=== PATIENT | female | born 1960 | race Hispanic/Latino ===

== ENCOUNTER 2017-09-28 10:36 | Emergency (ER) | payer OTHER ==
[2017-09-28] MEDS ORDERED: IBUPROFEN 400 MG TAB ONE (11:07)
[2017-09-28] MEDS ORDERED: DIAZEPAM 2 MG TABLET ONE (11:07)
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
[2017-09-28 13:18] LABS: Urine Blood NEGATIVE (NEG); Urine Glucose NEGATIVE (NEG); Urine Protein NEGATIVE (NEG); Urine pH 5.5 (5.0-7.0)
== END 2017-09-28 12:40 | disposition home or self-care (01) ==
LOC: ER 10:36
DX: S60.041A Contusion of right ring finger without damage to nail, initial encounter (principal); S60.051A Contusion of right little finger without damage to nail, initial encounter; V44.0XXA Car driver injured in collision with heavy transport vehicle or bus in nontraffic accident, initial encounter; Y93.89 Activity, other specified; Y92.89 Other specified places as the place of occurrence of the external cause
CPT/HCPCS: 81003; 81025; 99284

== ENCOUNTER 2019-10-21 07:35 | Day surgery (SDC) | payer OTHER ==
--- NOTE | 2019-10-17 15:34 | RAD REPORT ---
EXAM DESCRIPTION: RAD - Chest Pa And Lat (2 Views) - 10/17/2019 3:11 pm CLINICAL HISTORY: pre op, pending hernia repair, hypertension COMPARISON: Two view chest January 2017 TECHNIQUE: Frontal and lateral views of the chest were obtained. FINDINGS: The lungs are clear. Heart size is normal and central vasculature is within normal limit s. No pleural effusion or pneumothorax seen. No acute bony finding noted. Bony degenerative changes are present along with accentuated kyphosis. No aortic abnormality. IMPRESSION: No acute cardiopulmonary process. No significant change from comparison.
[2019-10-17 16:15] LABS: Absolute Lymphocytes (CBC) 0.8 K/uL (0.7-4.9); Basophils % 0.8 % (0-1.3); Hematocrit 39.1 % (36.0-45.0); Lymphocytes % 31.2 % (15.3-44.8); MPV 8.7 fL (7.6-11.3); RBC Red Blood Cell Count 4.38 M/uL (3.86-4.86)
[2019-10-17 16:57] LABS: Potassium 3.6 mmol/L (3.5-5.1)
[2019-10-17 18:51] LABS: Platelet Estimate ADEQ
[2019-10-17 18:52] LABS: Blood Morphology Comment NOT SEEN (NOT SEEN)
--- OUTSIDE RECORDS SUMMARY | 2019-10-21 08:07 | XMS REPORT | Summary of Care ---
:1960 Author Organization [facility] Address [address] [place] [id number] Care Team Providers Name Role Phone MD Nathaly Primary Care Provider Reason for Visit Reason Comments Erroneous encounter-disregard Encounter Details Date Type Department Care Team Description 10/08/2019 Telephone [facility] Pediatric Tom Andersen MD Erroneous and Adult Primary [address] encounter-disregard Care- [place] [address] [place], [place] [address], [address] [place] [address] Allergies No Known Allergiesdocumented as of this encounter (statuses as of 10/09/2019) Medications Medication Sig Dispensed Refills Start Date End Date Status LISINOPRIL-HYDROCHLOROT TAKE ONE TABLET 90 tablet 2 02/26/2019 Active HIAZIDE 10-12.5 mg per BY MOUTH DAILY tabletIndications: Essential hypertension documented as of this encounter (statuses as of 10/09/2019) Active Problems Problem Noted Date Obesity (BMI 30-39.9) 05/23/2018 Abdominal pannus 04/11/2018 Overview: Added automatically from request for lorna lazcano [id number] Postmenopausal 09/15/2017 Screening for colorectal cancer 06/22/2017 Overview: Added automatically from request for lorna lazcano [id number] Essential hypertension 07/30/2015 Liver fibrosis Thrombocytopenia documented as of this encounter (statuses as of 10/09/2019) Immunizations Name Administration Dates Next Due Pneumococcal 13 Conjugate, PCV13 (Prevnar 13) 03/26/2019 Zoster Vaccine Recombinant 03/26/2019 documented as of this encounter Social History Tobacco Use Types Packs/Day Years Used Date Never Smoker Smokeless Tobacco: Never Used Alcohol Use Drinks/Week oz/Week Comments No 0 Standard drinks or equivalent 0.0 Sex Assigned at Date Recorded Not on file documented as of this encounter Last Filed Vital Signs Not on filedocumented in this encounter Plan of Treatment Date Type Specialty Care Team Description 10/10/2019 Office Visit Family Medicine Tom Andersen MD [address] [place] [address] [address] [place], [place] [address] [phone] 04/16/2020 Office Visit Obstetrics & Gynecology Idalia Lr PA-C [address] [place] [address] [address] [place], [place] [phone] Health Maintenance Due Date Last Done Comments DTaP,Tdap,and Td Vaccines (1 - 1977 Tdap) COLON CANCER SCREENING ANNUAL 2008 FIT/FOBT COLON CANCER SCREENING FIT DNA 2008 EVERY 3 YEARS COLON CANCER SCREENING 2008 SIGMOIDOSCOPY EVERY 5 YEARS Zoster Recombinant Vaccine 05/21/2019 03/26/2019 (SHINGRIX) (2 of 2) INFLUENZA VACCINE (#1) 2019 Breast Cancer Screening 04/19/2020 04/19/2019, (MAMMOGRAM) 06/16/2017 Depression Screening 07/04/2020 07/05/2019 PAP SMEAR 09/07/2020 09/07/2017 COLONOSCOPY 07/04/2029 07/05/2019 Colorectal Cancer Screening 07/04/2029 HEPATITIS C (HCV) SCREEN Completed 06/27/2018, 09/07/2017, 06/28/2017 PNEUMOCOCCAL 0-64 YEARS Aged Out 03/26/2019 No longe r eligible based COMBINED SERIES on patient's age to complete this to [facility] documented as of this encounter Implants Implanted Type Area Field Associate Device Shelf Model / Identifier Expiration Serial / Date Lot Mesh, Ethicon Prolene Ultrapro 12in X 12in (30cm X 30cm) #[id number] - Sn/A MESH N/A: Abdomen Ethicon 04/26/2020 [id number] / Implanted: Qty: 1 on 05/23/2018 by Prakash Thakkar MD at [facility] N/A / [id number] documented as of this encounter Results Not on filedocumented in this encounter Insurance Payer Benefit Plan / Group Subscriber ID Effective Dates Phone Address Type [employer]ETNA [facility] [facility] [id number] 2015-Present PPO documented as of this encounter
--- OUTSIDE RECORDS SUMMARY | 2019-10-21 08:07 | XMS REPORT | Summary of Care ---
:1960 Author Organization [facility] Address [address] [place] [address] Care Team Providers Name Role Phone MD Nathaly Primary Care Provider Reason for Visit Reason Comments LAB WORK Encounter Details Date Type Department Care Team Description 10/12/2019 Tower Air Traffic Control Specialist Visit [facility] Jerrell Andersen MD [address] [place] [address] [address] [place] [address] Abdominal wall Professional Office Pob, Adc Lab Main hernia Building Phlebotomy Lab Professional Office Building [address] [place] [address] , [address] [place] [address] Allergies No Known Allergiesdocumented as of this encounter (statuses as of 10/12/2019) Medications Medication Sig Dispensed Refills Start Date End Date Status LISINOPRIL-HYDROCHLOROT TAKE ONE TABLET 90 tablet 2 02/26/2019 Active HIAZIDE 10-12.5 mg per BY MOUTH DAILY tabletIndications: Essential hypertension documented as of this encounter (statuses as of 10/12/2019) Active Problems Problem Noted Date Abdominal wall hernia 10/10/2019 Obesity (BMI 30-39.9) 05/23/2018 Abdominal pannus 04/11/2018 Overview: Added automatically from request for lorna lazcano [id number] Postmenopausal 09/15/2017 Screening for colorectal cancer 06/22/2017 Overview: Added automatically from request for lorna lazcano [id number] Essential hypertension 07/30/2015 Liver fibrosis Thrombocytopenia documented as of this encounter (statuses as of 10/12/2019) Immunizations Name Administration Dates Next Due Pneumococcal 13 Conjugate, PCV13 (Prevnar 13) 03/26/2019 Zoster Vaccine Recombinant 03/26/2019 documented as of this encounter Social History Tobacco Use Types Packs/Day Years Used Date Never Smoker Smokeless Tobacco: Never Used Alcohol Use Drinks/Week oz/Week Comments No 0 Standard drinks or equivalent 0.0 Sex Assigned at Date Recorded Not on file COVID-19 Exposure Response Date Recorded In the last month, have you been in contact with No / Unsure 10/10/2019 12:56 PM CDT someone who was confirmed or suspected to have Coronavirus / COVID-19? documented as of this encounter Last Filed Vital Signs Not on filedocumented in this encounter Nursing Notes Norma Borja - 10/12/2019 8:45 AM CDT Venipuncture collection performed by clean technique on the right anticubitus. Total of 1 attempts were made. Slight pressure and a bandage/dressing were applied to the site(s). The patient experiencedno complications. The following specimens were processed according to instructions and sent to [facility] laboratories per lab order on today: LT BLUE 1 SST 1 RED LAV 1 PPT DK GREEN (LiHep) DK GREEN (SodH) [place] DK BLUE (K2) DK BLUE (S) ACD Blood Culture NIPT/NTD documented in this encounter Plan of Treatment Date Type Specialty Care Team Description 01/10/2020 Office Visit Family Medicine Tom Andersen MD [address] [place] [address] [address] [address] 15 04/16/2020 Office Visit Obstetrics & Gynecology Idalia Lr PA-C [address] [place] [address] [address] [address] [phone] Name Type Priority Associated Diagnoses Date/Ti me CBC WITH DIFF LAB Routine Abdominal wall hernia 10/11 8:25 AM CDT FREE T4 LAB Routine Abdominal wall hernia 2019 8:25 AM CDT FREE T3 LAB Routine Abdominal wall hernia 2019 8:25 AM CDT LIPID PANEL (17274)(TOTAL LAB Routine Abdominal wall hernia 10/12/2019 8:25 AM CDT CHOLESTEROL, TRIGLYCERIDES, HDL) THYROID STIMULATING LAB Routine Abdominal wall hernia 10/12/2019 8:25 AM CDT HORMONE PROTHROMBIN TIME / INR LAB Routine Abdominal wall her phil 10/12/2019 8:25 AM CDT aPTT LAB Routine Abdominal wall hernia 2019 8:25 AM CDT Health Maintenance Due Date Last Done Comments COLON CANCER SCREENING ANNUAL 2008 FIT/FOBT COLON CANCER SCREENING FIT 2008 DNA EVERY 3 YEARS COLON CANCER SCREENING 2008 SIGMOIDOSCOPY EVERY 5 YEARS Zoster Recombinant Vaccine 05/21/2019 03/26/2019 (SHINGRIX) (2 of 2) INFLUENZA VACCINE (#1) 2019 Breast Cancer Screening 04/19/2020 04/19/2019, (MAMMOGRAM) 06/16/2017 Depression Screening 07/04/2020 07/05/2019 PAP SMEAR 09/07/2020 09/07/2017 DTaP,Tdap,and Td Vaccines (1 10/09/2020 Pos tponed from 1977 - Tdap) (Alternative [place]) COLONOSCOPY 07/04/2029 07/05/2019 Colorectal Cancer Screening 07/04/2029 HEPATITIS C (HCV) SCREEN Completed 06/27/2018, 09/07/2017, 06/28/2017 PNEUMOCOCCAL 0-64 YEARS Aged Out 03/26/2019 No longe r eligible based COMBINED SERIES on patient's age to complete this to [facility] documented as of this encounter Implants Implanted Type Area Trim Sawyer Device Shelf Model / Identifier Expiration Serial / Date Lot Mesh, Ethicon Prolene Ultrapro 12in X 12in (30cm X 30cm) #[id number] l1 - Sn/A MESH N/A: Abdomen Ethicon 04/26/2020 UML1 / Implanted: Qty: 1 on 05/23/2018 by Prakash Thakkar MD at [facility] N/A / [id number] documented as of this encounter Results Not on filedocumented in this encounter Visit Diagnoses Diagnosis Abdominal wall hernia Ventral hernia, unspecified, without men tion of obstruction or gangrene documented in this encounter documented as of this encounter
--- OUTSIDE RECORDS SUMMARY | 2019-10-21 08:07 | XMS REPORT | Summary of Care ---
:1960 Author Organization [facility] Address [address] [place] [address] Care Team Providers Name Role Phone MD Nathaly Primary Care Provider Reason for Visit Reason Comments New Patient HERNIA Hypertension Encounter Details Date Type Department Care Team Description 10/10/2019 Office Visit [facility] Pediatric Tom Andersen E ssential hypertension (Primary Dx); and Adult Primary MD Abdominal wall hernia Care- [address] [facility] [address], [address] [place] [address] [place], [place] [phone] [address] [phone] Allergies No Known Allergiesdocumented as of this encounter (statuses as of 10/10/2019) Medications Medication Sig Dispensed Refills Start Date End Date Status LISINOPRIL-HYDROCHLOROT TAKE ONE TABLET 90 tablet 2 02/26/2019 Active HIAZIDE 10-12.5 mg per BY MOUTH DAILY tabletIndications: Essential hypertension documented as of this encounter (statuses as of 10/10/2019) Active Problems Problem Noted Date Abdominal wall hernia 10/10/2019 Obesity (BMI 30-39.9) 05/23/2018 Abdominal pannus 04/11/2018 Overview: Added automatically from request for lorna lazcano [id number] Postmenopausal 09/15/2017 Screening for colorectal cancer 06/22/2017 Overview: Added automatically from request for lorna lazcano [id number] Essential hypertension 07/30/2015 Liver fibrosis Thrombocytopenia documented as of this encounter (statuses as of 10/10/2019) Immunizations Name Administration Dates Next Due Pneumococcal [...] of this encounter Last Filed Vital Signs Vital Sign Reading Time Taken Comments Blood Pressure 128/87 10/10/2019 1:13 PM CDT Pulse 77 10/10/2019 1:13 PM CDT Temperature 36.1 C (97 F) 10/10/2019 1:13 PM CDT Respiratory Rate 18 10/10/2019 1:13 PM CDT Oxygen Saturation 96% 10/10/2019 1:13 PM CDT Inhaled Oxygen Concentration - - Weight 89.6 kg (197 lb 8 oz) 10/10/2019 1:13 PM CDT Height 160 cm (5' 3") 10/10/2019 1:13 PM CDT Body Mass Index 34.99 10/10/2019 1:13 PM CDT documented in this encounter Patient Instructions Patient InstructionsEdTom leonardo MD - 10/10/2019 1:00 PM CDT Patient Education How a Hernia Develops Although a hernia bulge may appear suddenly, hernias often take years to develop. They grow larger as pressure inside the body presses the intestines or other tissues out through a weak area in the abdominal wall, often at the belly button or a site of previous surgery. With time, these tissues can bulge out beneath the skin. Stages of hernia development The wall weakens or tears.The abdominal lining bulges out through a weak area and begins to form ahernia sac. The sac may contain fat, intestine, or other tissues. At this point, the hernia may or may not cause a visible bulge. The intestine pushes into the sac.As the intestine pushes further into the sac, it forms a visiblebulge. The bulge may flatten when you lie down or push against it. This is called a reducible herniaand does not cause any immediate danger. The intestine may become trapped.The sac containing the intestine may become trapped by muscle (incarcerated). If this happens, you wont be able to flatten the bulge. You may also have pain. Prompt treatment is needed. The intestine may become strangulated. If the intestine is tightly trapped, it becomes strangulated.The strangulated area loses blood supply and may . This can cause severe pain and block the intestine. Emergency surgery is needed. [employer] last reviewed this educational content on 03/30/201919992526-5726 [employer]. [address] [place] [id number]. All rights reserved. This information is not intended as a substitute for professional medical care. Always follow your healthcare professional's instructions. documented in this encounter Progress Notes Tom Andersen MD - 10/10/2019 1:00 PM CDT Cc: Chief Complaint Patient presents with New Patient HERNIA Hypertension Lor Polanco is a 59 year old female who has a past medical history of Acid reflux disease, HPV (human papilloma virus) anogenital infection, Hypercholesteremia, Hypertension, Liver fibrosis, Liver fibrosis, Pap smear abnormality of cervix, STD (sexually transmitted disease), Thrombocytopenia, and Thrombocytopenia. She also has no past medical history of Abnormal uterine bleeding, Anemia, Anesthesia complication, Anxiety, Asthma, Autoimmune disorder, Blood dyscrasia, Breast disorder, Cancer, Coronary artery disease, Depression, Diabetes mellitus, Endocrine disorder, Endometriosis, Female infertility, Genital herpes, Genital warts, Heart murmur, Hormone disorder, Hyperlipidemia, Kidney disease, Leiomyoma of uterus, Menstrual disorder, Mental disorder, Osteoporosis, PID (pelvic inflammatory disease), Rh incompatibility, Seizures, Sickle cell anemia, Substance abuse, Superficial thrombophlebitis, Thyroid disease, Transfusion history, Trauma, Tuberculosis, or Urinary incontinence. Patient is here to establish care with a new provider, reports scheduled procedure for abdominal hernia repair. Patient reports hx HTN, BP currently controlled, 128/87 on arrival, on Lisinopril -HCTZ 10 -12.5mg qDay. Patient completed shingles vaccination at the local pharmacy, is due to tetanus vaccination, will complete at the local pharmacy. Prior labs reviewed and discussed Allergies Lor has No Known Allergies. Medications Outpatient Medications Prior to Visit Medication Sig Dispense Refill LISINOPRIL-HYDROCHLOROTHIAZIDE 10-12.5 mg per tablet TAKE ONE TABLET BY MOUTH DAILY 90 tablet 2 No facility-administered medications prior to visit. Histories Past Medical History: Diagnosis Date Acid reflux disease HPV (human papilloma virus) anogenital infection Hypercholesteremia Hypertension Liver fibrosis Liver fibrosis Pap smear abnormality of cervix STD (sexually transmitted disease) Thrombocytopenia Thrombocytopenia Past Surgical History: Procedure Laterality Date SECTION CHOLECYSTECTOMY COLONOSCOPY N/A 07/05/2019 Surgeon: Kirstie Brown MD; Location: [facility] OR Location LAPAROSCOPIC BARIATRIC GASTRIC BYPASS 02/2001 PANNICULECTOMY N/A 05/23/2018 Surgeon: Renée Lorenzo MD; Location: [facility] OR [facility] VENTRAL HERNIORRHAPHY N/A 05/23/2018 Surgeon: Prakash Weber MD; Location: [facility] OR Location Social History Socioeconomic History Marital status: Spouse name: Not on file Number of children: Not on file Years of education: Not on file Highest education level: Not on file Occupational History Not on file Social Needs Financial resource strain: Not on file Food insecurity Worry: Not on file Inability: Not on file Transportation needs Medical: Not on file Non-medical: Not on file Tobacco Use Smoking status: Never Smoker Smokeless tobacco: Never Used Substance and Sexual Activity Alcohol use: No Alcohol/week: 0.0 standard drinks Drug use: No Sexual activity: Yes Partners: Male control/protection: Post-menopausal Lifestyle Physical activity Days per week: Not on file Minutes per session: Not on file Stress: Not on file Relationships Social connections Talks on phone: Not on file Gets together: Not on file Attends hinduism service: Not on file Active member of club or organization: Not on file Attends meetings of clubs or organizations: Not on file Relationship status: Not on file Intimate partner violence Fear of current or ex partner: Not on file Emotionally abused: Not on file Physically abused: Not on file Forced sexual activity: Not on file Other Topics Concern Not on file 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 She's active. Family History Problem Relation Age of Onset Cancer Mother Diabetes Mother Pulmonary Mother Parkinsons disease Father Alcohol/Drug Father Hypertension Father Asthma NoFHx Arthritis NoFHx defects NoFHx Breast Cancer NoFHx Colon Cancer NoFHx Ovarian Cancer NoFHx Uterine Cancer NoFHx Depression NoFHx Genetic NoFHx Heart NoFHx High cholesterol NoFHx Mental retardation NoFHx Neurological NoFHx Other - see comments NoFHx Review of Systems Constitutional: Negative for unexpected weight change. Respiratory: Negative for cough and shortness of breath. Cardiovascular: Negative for chest pain and palpitations. Gastrointestinal: Negative for abdominal pain. Hernia Vital Signs BP 128/87 (BP Location: Right arm, Patient Position: Sitting, BP CUFF SIZE: Adult Medium) | Pulse 77 | Temp 36.1 C (97 F) (Temporal Artery) | Resp 18 | Ht 5' 3" (1.6 m) | Wt 197 lb 8 oz (89.6 kg) | SpO2 96% | BMI 34.99 kg/m Physical Exam Vitals signs and nursing note reviewed. Constitutional: Appearance: Normal appearance. HENT: Head: Normocephalic and atraumatic. Nose: Nose normal. Eyes: Extraocular Movements: Extraocular movements intact. Pupils: Pupils are equal, round, and reactive to light. Neck: Musculoskeletal: Normal range of motion and neck supple. Cardiovascular: Rate and Rhythm: Normal rate and regular rhythm. Pulses: Normal pulses. Abdominal: General: Bowel sounds are normal. Palpations: Abdomen is soft. Tenderness: There is no abdominal tenderness. Hernia: A hernia is present. Comments: Abdominal wall hernia Musculoskeletal: Normal range of motion. General: No swelling. Skin: General: Skin is warm and dry. Capillary Refill: Capillary refill takes less than 2 seconds. Neurological: General: No focal deficit present. Mental Status: She is alert. Psychiatric: Mood and Affect: Mood normal. Behavior: Behavior normal. Assessment/Plan Essential hypertension - BP stable and controlled, encouraged to adopt DASH diet plan, continue on Lisinopril - HCTZ 10 - 12.5mg qDay Abdominal wall hernia - Patient is scheduled to see General Surgery (Dr. Bill Díaz), 10/11/2019, currently scheduled for surgery on 10/21/2019 - Labs as ordered Return in about 3 months (around 01/10/2020), or if symptoms worsen or fail to improve. Preventive Care: Medication reconciliation, patient education and anticipatory guidance completed. All questions and concerns addressed. AVS given, handout provided. Tom Andersen MD, MPH, AAHIVS Clinical Bulk Intake Worker, Department of Family Medicine [facility] Primary & Specialty Care - [facility] 10/10/2019 1:36 PM documented in this encounter Plan of Treatment Date Type Specialty Care Team Description 04/16/2020 Office Visit Obstetrics & Gynecology Idalia Lr PA-C [address] [place] [address] [phone] Name Type Priority Associated Diagnoses Order S chedule CBC WITH DIFF LAB Routine Abdominal wall hernia Expec devora: 10/10/2019, Expires: 2020 COMP. METABOLIC PANEL LAB Routine Abdominal wall rj ia Ordered: 10/10/2019 (45106) FREE T4 LAB Routine Abdominal wall hernia Expect ed: 10/10/2019, Expires: 2020 FREE T3 LAB Routine Abdominal wall hernia Expect ed: 10/10/2019, Expires: 2020 LIPID PANEL LAB Routine Abdominal wall hernia Expect ed: ([id number])(TOTAL 10/10/2019, CHOLESTEROL, Expires: 2020 TRIGLYCERIDES, HDL) THYROID STIMULATING LAB Routine Abdominal wall hernia Expected: HORMONE 10/10/2019, Expires: 2020 PROTHROMBIN TIME / INR LAB Routine Abdominal wall her phil Expected: 10/10/2019, Expires: 2020 aPTT LAB Routine Abdominal wall hernia Expect ed: 10/10/2019, Expires: 2020 EKG-12 LEAD ROUTINE HEART STATION Routine Abdominal wall herni a Ordered: 10/10/2019 COVID-19 (PCR LAB Routine Abdominal wall hernia Expec devora: MOLECULAR TESTING) 0, Expires: 2020 Health Maintenance Due Date Last Done Comments COLON CANCER SCREENING ANNUAL 2008 FIT/FOBT COLON CANCER SCREENING FIT 2008 DNA EVERY 3 YEARS COLON CANCER SCREENING 2008 SIGMOIDOSCOPY EVERY 5 YEARS Zoster Recombinant Vaccine 10/11/2019 03/26/2019 Postp oned from 05/21/2019 (SHINGRIX) (2 of 2) (Alternative Guidelines) INFLUENZA VACCINE (#1) 2019 Breast Cancer Screening [...] on patient's age to complete this to [facility] documented as of this encounter Implants Implanted Type Area Philosophy Professor Device Shelf Model / Identifier Expiration Serial / Date Lot Mesh, Ethicon Prolene Ultrapro 12in X 12in (30cm X 30cm) #[id number] l1 - Sn/A MESH N/A: Abdomen Ethicon 04/26/2020 UML1 / Implanted: Qty: 1 on 05/23/2018 by Prakash Thakkar MD at [facility] N/A / [id number] documented as of this encounter Results Not on filedocumented in this encounter Visit Diagnoses Diagnosis Essential hypertension - Primary Unspecified essential hypertension Abdominal wall hernia Ventral hernia, unspecified, without men tion of obstruction or gangrene documented in this encounter documented as of this encounter
--- OUTSIDE RECORDS SUMMARY | 2019-10-21 08:07 | XMS REPORT | Summary of Care ---
:[address] [facility] Address [address] [place] [address] Care Team Providers Name Role Phone MD Nathaly Primary Care Provider Reason for Visit Reason Comments New Patient HERNIA Hypertension Encounter Details Date Type Department Care Team Description 10/10/2019 Office Visit [facility] Pediatric Tom Andersen E ssential hypertension (Primary Dx); and Adult Primary MD Abdominal wall hernia Care- [address] [facility] [address], [address] [place] [address] [place] [phone] [address] [phone] Allergies No Known Allergiesdocumented as of this [...] Added automatically from request for lorna lazcano [id number] Postmenopausal 09/15/2017 Screening for colorectal cancer 06/22/2017 Overview: Added automatically from request for lorna lazcano [id number] Essential hypertension 07/30/2015 Liver fibrosis Thrombocytopenia documented [...] block the intestine. Emergency surgery is needed. [employer] last reviewed this educational content on 03/30/201919992292-4014 [employer]. [address] [place] [address]. All rights reserved. 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 Tom Andersen MD, MPH, AAHIVS Clinical Creative Services Designer, Department of Family Medicine [facility] Primary & Specialty Care - [facility] 10/10/2019 1:36 PM documented in this encounter Plan of Treatment Date Type Specialty Care Team Description 04/16/2020 Office Visit Obstetrics & Gynecology Idalia Lr PA-C [address] [place] [address] [phone] Name Type Priority Associated Diagnoses Order S chedule CBC WITH DIFF LAB Routine Abdominal wall hernia Expec devora: 10/10/2019, Expires: 2020 COMP. METABOLIC PANEL LAB Routine Abdominal wall rj ia Ordered: 10/10/2019 (13215) FREE T4 LAB Routine Abdominal wall hernia Expect ed: 10/10/2019, Expires: 2020 FREE T3 LAB Routine Abdominal wall hernia Expect ed: 10/10/2019, Expires: 2020 LIPID PANEL LAB Routine Abdominal wall hernia Expect ed: (28611)(TOTAL 10/10/2019, CHOLESTEROL, Expires: 2020 TRIGLYCERIDES, HDL) THYROID [...] on patient's age to complete this to [facility] documented as of this encounter Implants Implanted Type Area Director Of Accounting Device Shelf Model / Identifier Expiration Serial / Date Lot Mesh, Ethicon Prolene Ultrapro 12in X 12in (30cm X 30cm) #[id number] l1 - Sn/A MESH N/A: Abdomen Ethicon 04/26/2020 UML1 / Implanted: Qty: 1 on 05/23/2018 by Prakash Thakkar MD at [facility] N/A / [id number] documented as of this encounter Results Not on filedocumented in this encounter Visit Diagnoses Diagnosis Essential hypertension - Primary Unspecified essential hypertension Abdominal wall hernia Ventral hernia, unspecified, without men tion of obstruction or gangrene documented in this encounter documented as of this encounter
--- OUTSIDE RECORDS SUMMARY | 2019-10-21 08:07 | XMS REPORT | Summary of Care ---
:1960 Author Organization [facility] Health Address [address] [place] [address] Care Team Providers Name Role Phone MD Nathaly Primary Care Provider Encounter Details Date Type Department Care Team Description 10/12/2019 Orders Only [facility] Doctor Unassigned, No [address] [facility] Name [place] [id number] [address] [place] [id number] Allergies No Known Allergiesdocumented as of this [...] Overview: Added automatically from request for lorna jaleesa [id number] Postmenopausal 09/15/2017 Screening for colorectal cancer 06/22/2017 Overview: Added automatically from request for lorna jaleesa [id number] Essential hypertension 07/30/2015 Liver fibrosis Thrombocytopenia documented [...] Treatment Date Type Specialty Care Team Description 10/12/2019 Federal Law Clerk Visit Phlebotomy Jerrell Andersen MD [address] [place] [address] [address] [phone] Pob, Adc Lab Main 01/10/2020 Office Visit Family Medicine Tom Andersen MD [address] [place] [address] [address] [phone] 04/16/2020 Office Visit Obstetrics & Gynecology Idalia Lr, JELLYC [address] [place] [address] [phone] Health Maintenance Due Date Last Done Comments [...] on patient's age to complete this to [facility] documented as of this encounter Implants Implanted Type Area Platform Consultant Device Shelf Model / Identifier Expiration Serial / Date Lot Mesh, Ethicon Prolene Ultrapro 12in X 12in (30cm X 30cm) #Um l1 - Sn/A MESH N/A: Abdomen Ethicon 04/26/2020 UML1 / Implanted: Qty: 1 on 05/23/2018 by Prakash Thakkar MD at [facility] N/A / [id number] documented as of this encounter Procedures Procedure Name Priority Date/Time Associated Diagnosis Comme nts ASSIGNMENT OF BENEFITS Routine 10/12/2019 8:13 AM CDT ASSIGNMENT OF BENEFITS Routine 10/12/2019 8:13 AM CDT ASSIGNMENT OF BENEFITS Routine 10/12/2019 8:13 AM CDT documented in this encounter Results Not on filedocumented in this encounter Insurance Payer Benefit Plan / Group Subscriber ID Effective Dates Phone Address Type AETNA AETNA [facility] [id number] 2015-Present PPO documented as of this encounter
--- OUTSIDE RECORDS SUMMARY | 2019-10-21 08:07 | XMS REPORT | Summary of Care ---
:1960 Author Organization [facility] - Health Address [address] [place] [address] Care Team Providers Name Role Phone Juno JOSELITO Primary Care Provider Encounter Details Date Type Department Care Team Description 09/18/2019 Orders Only [facility] Doctor Unassigned, No [address] [facility] [place] [address] [address] [place] [id number] Allergies No Known Allergiesdocumented as of this encounter (statuses as of 09/24/2019) Medications Medication Sig Dispensed Refills Start Date End Date Status LISINOPRIL-HYDROCHLOROT TAKE ONE TABLET 90 tablet 2 02/26/2019 Active HIAZIDE 10-12.5 mg per BY MOUTH DAILY tabletIndications: Essential hypertension documented as of this encounter (statuses as of 09/24/2019) Active Problems Problem Noted Date Obesity (BMI 30-39.9) 05/23/2018 Abdominal pannus 04/11/2018 Overview: Added automatically from request for lorna lazcano [id number] Postmenopausal 09/15/2017 Screening for colorectal cancer 06/22/2017 Overview: Added automatically from request for lorna lazcano [id number] Essential hypertension 07/30/2015 Liver fibrosis Thrombocytopenia documented as of this encounter (statuses as of 09/24/2019) Immunizations Name Administration Dates Next Due Pneumococcal 13 Conjugate, PCV13 (Prevnar 13) 03/26/2019 Zoster Vaccine Recombinant 03/26/2019 documented as of this encounter Social History Tobacco Use Types Packs/Day Years Used Date Never Smoker Smokeless Tobacco: Never Used Alcohol Use Drinks/Week oz/Week Comments No 0 Standard drinks or equivalent 0.0 Sex Assigned at Date Recorded Not on file Job Start Date Occupation Industry Not on file Not on file Not on file Travel History Travel Start Travel End No recent travel history available. documented as of this encounter Last Filed Vital Signs Not on filedocumented in this encounter Plan of Treatment Date Type Specialty Care Team Description 04/16/2020 Office Visit Obstetrics & Gynecology Idalia Lr PA-C [address] [phone] Health Maintenance Due Date Last Done Comments DTaP,Tdap,and Td Vaccines (1 1969 - Tdap) Zoster Recombinant Vaccine 05/21/2019 03/26/2019 (SHINGRIX) (2 of 2) INFLUENZA VACCINE (#1) 2019 Breast Cancer Screening 04/19/2020 04/19/2019, (MAMMOGRAM) 06/16/2017 Depression Screening 07/04/2020 07/05/2019 PAP SMEAR 09/07/2020 09/07/2017 COLONOSCOPY 07/04/2029 07/05/2019 HEPATITIS C (HCV) SCREEN Completed 06/27/2018, 09/07/2017, 06/28/2017 PNEUMOCOCCAL 0-64 YEARS Aged Out 03/26/2019 No longe r eligible based COMBINED SERIES on patient's age to complete this to [facility] documented as of this encounter Implants Implanted Type Area Migratory Worker Device Shelf Model / Identifier Expiration Serial / Date Lot Mesh, Ethicon Prolene Ultrapro 12in X 12in (30cm X 30cm) #[id number] [id number] - Sn/A MESH N/A: Abdomen Ethicon 04/26/2020 UML1 / Implanted: Qty: 1 on 05/23/2018 by Prakash Thakkar MD at [facility] N/A / [id number] documented as of this encounter Procedures Procedure Name Priority Date/Time Associated Diagnosis Comme nts AUTHORIZATION FOR RELEASE Routine 09/18/2019 12:01 AM OF PHI CDT documented in this encounter Results Not on filedocumented in this encounter Insurance Payer Benefit Plan / Group Subscriber ID Effective Dates Phone Address Type AETNA AETNA [facility] [id number] 2015-Present PPO documented as of this encounter
--- OUTSIDE RECORDS SUMMARY | 2019-10-21 08:08 | XMS REPORT | Continuity of Care Document ---
:1960 Author Organization [facility] t Address [address] [place] [place] [address] Care Team Providers Name Role Phone Pob, Lab Main Attending Clinician Unavailable Problems This patient has no known problems. Allergies, Adverse Reactions, Alerts This patient has no known allergies or adverse reactions. Medications This patient has no known medications. Procedures This patient has no known procedures. Encounters Start End Encounter Admission Attending Care Care Encounter Source Date/Time Date/Time Type Type Clinicians Facility Department ID 2019-10-12 2019-10-12 Poultry Processing Supervisor Ottoniel Tyler MOCASSIE [id number] 08:14:22 08:29:22 Visit Lab Main [place] [id number] [place] [id number] [phone] [facility], [facility] [address] Building Results This patient has no known results.
--- OUTSIDE RECORDS SUMMARY | 2019-10-21 08:08 | XMS REPORT | Summary of Care ---
:1960 Author Organization [facility] Address [address] [place] [id number] Care Team Providers Name Role Phone MD Nathaly Primary Care Provider Reason for Visit Reason Comments LAB WORK Encounter Details Date Type Department Care Team Description 10/12/2019 Chaperone Visit [facility] Jerrell Andersen MD [address] [place] [address] [address] [place] [address] Abdominal wall Professional Office Pob, Adc Lab Main hernia Building Phlebotomy Lab Professional Office Building [address] [place] [address] , [address] [place] [address] Allergies No Known Allergiesdocumented as [...] Added automatically from request for lorna lazcano [id number] Postmenopausal 09/15/2017 Screening for colorectal cancer 06/22/2017 Overview: Added automatically from request for lorna lazcano [id number] Essential hypertension 07/30/2015 Liver fibrosis Thrombocytopenia documented [...] processed according to instructions and sent to [facility] laboratories per lab order on today: LT BLUE 1 SST 1 RED LAV 1 PPT DK GREEN (LiHep) DK GREEN (SodH) [place] DK BLUE (K2) DK BLUE (S) ACD Blood Culture NIPT/NTD documented in this encounter Plan of Treatment Date Type Specialty Care Team Description 01/10/2020 Office Visit Family Medicine Tom Andersen MD [address] [place] [address] [address] [place] [phone] 15 04/16/2020 Office Visit Obstetrics & Gynecology Idalia Lr PA-C [address] [place] [address] [address] [place] [phone] Name Type Priority Associated Diagnoses Date/Ti me CBC WITH DIFF LAB Routine Abdominal wall hernia 10/11 8:25 AM CDT FREE T4 LAB Routine Abdominal wall hernia 2019 8:25 AM CDT FREE T3 LAB Routine Abdominal wall hernia 2019 8:25 AM CDT LIPID PANEL (22137)(TOTAL LAB Routine Abdominal wall hernia 10/12/2019 8:25 AM CDT CHOLESTEROL, TRIGLYCERIDES, HDL) THYROID STIMULATING LAB Routine Abdominal wall hernia 10/12/2019 8:25 AM CDT HORMONE Health Maintenance Due Date Last Done Comments [...] on patient's age to complete this to [facility] documented as of this encounter Implants Implanted Type Area Insurance Healthcare Representative Device Shelf Model / Identifier Expiration Serial / Date Lot Mesh, Ethicon Prolene Ultrapro 12in X 12in (30cm X 30cm) #[id number] - Sn/A MESH N/A: Abdomen Ethicon 04/26/2020 UML1 / Implanted: Qty: 1 on 05/23/2018 by Prakash Thakkar MD at [facility] N/A / [id number] documented as of this encounter Procedures Procedure Name Priority Date/Time Associated Comments Diagnosis ACTIVATED PARTIAL Routine 10/12/2019 8:25 Abdominal wall Resu lts for this THRMPLAS LONNIE AM CDT hernia procedure are i n the results section. PROTHROMBIN TIME / Routine 10/12/2019 8:25 Abdominal wall Res ults for this INR AM CDT hernia procedure are i n the results section. documented in this encounter Results aPTT (10/12/2019 8:25 AM CDT) Pathologist Sig nature APTT Patient 28 23 - 38 Seconds [facility] Specimen Blood - ARM, RIGHT Narrative Performed At The [facility] patient population mean normal value [facility] for aPTT is 30 seconds. Performing Organization Address City/[facility]/Zipcode Phone Number [facility] CLIA: [id number] [place] [address] PROTHROMBIN TIME / INR (10/12/2019 8:25 AM CDT) PROTIME PATIENT 14.4 12.0 - 14.7 [facility] LABORATORY INR 1.2Comment: Normal [facility] INR <1.1; Warfarin [facility] Therapeutic range LABORATORY 2.0 to 3.0 or 2.5 to 3.5, depending upon the indications. Specimen Blood - ARM, RIGHT Performing Organization Address [facility] Phone Number [facility] CLIA: [id number] [place] [address] documented in this encounter Visit Diagnoses Diagnosis Abdominal wall hernia Ventral hernia, unspecified, without men tion of obstruction or gangrene documented in this encounter documented as of this encounter
[2019-10-21] MEDS ORDERED: propofoL 200 MG/20 ML VIAL IV ONE (08:17)
[2019-10-21] MEDS ORDERED: FENTANYL CITR 100 MCG/2 ML ONE ×2 (08:17→10:17)
[2019-10-21] MEDS ORDERED: MIDAZOLAM HCL 2 MG/2 ML INJ ONE (08:17)
[2019-10-21] MEDS ORDERED: ROCURONIUM 50 MG/5 ML VIAL IV ONE ×3 (08:18→10:00)
[2019-10-21] MEDS ORDERED: LIDOCAINE 1% MPF 5 ML VIAL ONE (08:18)
[2019-10-21] MEDS: Ringers Lactate 1,000 ML IV ONE ×2 (08:25→08:35)
[2019-10-21] MEDS ORDERED: CEFAZOLIN/SWI 1gm 1 GM/10 ML SYR ONE (08:33)
[2019-10-21] MEDS ORDERED: dexAMETHasone 10 MG/ML VIAL ONE (09:03)
[2019-10-21] MEDS ORDERED: KETOROLAC 30 MG/ML INJ ONE (09:03)
[2019-10-21] MEDS ORDERED: ONDANSETRON 4 MG/2 ML VIAL ONE (09:35)
[2019-10-21] MEDS ORDERED: NS 0.9% VIAL 10 ML ONE (09:36)
[2019-10-21] MEDS ORDERED: EPHEDRINE SULF 50 MG/ML VIAL ONE (09:36)
[2019-10-21] MEDS ORDERED: GLYCOPYRROLATE 0.2 MG/ML SYR ONE (10:41)
[2019-10-21] MEDS ORDERED: NEOSTIGMINE 1 MG/ML -5 ML ONE (10:41)
--- NOTE | 2019-10-21 10:51 | P.BOP ---
Preoperative diagnosis: abdominal pain, multiple ventral incisional hernias Postoperative diagnosis: same plus intrabdominal adhesions Primary procedure: 1. Open repair of incisional epigastric upper ventral hernia with mesh Secondary procedure: 2. Open repair of incisional lower suprapubic ventral hernia with mesh Other procedure(s): 3. Laparoscopic extensive lysis of adhesions Care Tech: Tawanna Mackay) Estimated blood loss: <20cc Specimen: none Findings: see dictatiom Anesthesia: General Complications: None Implants: ventralight ST with echo PS (lower ventral), ventralex epigastric ventral Transferred to: Recovery Room Condition: Good
[2019-10-21] MEDS: HYDROMORPHONE HCL 1 MG/ML INJ ONE ×3 (11:21→11:40)
[2019-10-21] MEDS ORDERED: HYDROMORPHONE HCL 1 MG/ML INJ ONE (11:50)
[2019-10-21] MEDS: MEPERIDINE HCL 25 MG/ML SYR ONE ×2 (12:00→12:05)
[2019-10-21] MEDS ORDERED: PROMETHAZINE INJ 25 MG/ML AMP ONE (12:25)
[2019-10-21] MEDS ORDERED: SUCCINYLCHOLINE 20 MG/ML (10 ML) IV ONE (13:14)
[2019-10-21 14:40] VITALS: BP 109/74; TEMP 98; O2SAT 98
--- NOTE | 2019-10-21 22:23 | OP ---
Date of Procedure: 10/21/2019 Surgeon: Bill Díaz MD Managing Consultant Clinical Professor: Tawanna Mackay. Preoperative Diagnoses: Abdominal pain, multiple ventral incisional hernias. Postoperative Diagnoses: Abdominal pain, multiple ventral incisional hernias, extensive intraabdomin al adhesions. Procedures: 1.Open repair of incisional epigastric ventral hernia with mesh. 2.Open repair of incisional lower suprapubic ventral hernia repair with mesh. 3.Extensive laparoscopic lysis of adhesions. Findings: The patient has a previous surgical intervention in another institution with a large herni a in the mid abdomen done. This time, she broke above and below the mesh, which is completely [address] Obviously to identify those areas, we have to do a diagnostic lap and do an extensive lysis of adhesions. It took about an hours just to be able to take all the adhesions down, visualize the area of the previous mesh, and visualize the new defects. There were repair with the use of arturo raul closure and also mesh underneath. Anesthesia: General plus local. Implant: For the lower ventral region, we used a Ventralight ST mesh with Echo Positioning System in the epigastric ventral hernia. In the upper ventral hernia, we used a Ventralex mesh. Indications: This is a case of a female, who comes to us with 2 new hernias. She had several years ago repair of mid abdominal hernia in another institution. She is doing okay. She is putting some w eight and she has been sneezing and coughing, and she developed this 2 tender hernias in upper abdome n and lower abdomen. She want those repaired. It is tender with some incarcerated omentum on it. B enefits and risks of repair each one with use of mesh and possible extensive intraabdominal adhesions removal fully explained to the patient which include, but not limited to infection, bleeding, damage to adjacent structures, anesthesia complication, nonhealing wound, recurrence, CA, and even . She also understands this may not relieve the symptoms. She might need more than one surgical interv ention. She understood also that we may use mesh in that region, we may even have to remove the prev ious mesh, we may have to put a new mesh. The pros and cons of mesh placement were discussed with shiv e patient. She understood the pros and cons of mesh placement and after discussing that and answered all her questions to her satisfaction, then she did consent for the use of mesh. The patient unders tands importance of no heavy lifting and also losing weight, which is an important step not to have t his recurrent hernias or more hernias in her abdomen and is essential. She will do cooperate with at. She was offered professional help. Description Of Procedure: The patient was brought to the operating room and placed in supine positio n. Anesthesia was done without complication. Abdominal area was prepped and draped in sterile fashi on. She has a large midline incision. So, we proceeded to go into the lower ventral region even low er than the previous hernia that we believe we have there seen on the CAT scan. We opened the fascia under direct visualization. We were able to put the camera in after Chuck trocar was introduced un wilber direct visualization and then we visualized that she has some extensive adhesions in the abdomen. So, we put a 5 mm trocar in all the places that we noted is safe and then basically we placed a cla ssic 5 mm trocar and then using the LigaSure, we proceeded to do the lysis of adhesions. We took mor e than an hour just doing so. Once we have all those omentum down and we can visualize the abdomen, we noticed an upper epigastric ventral hernia just away from the area of the previous mesh and then t he same went in the lower part. The area of the mesh looks intact. So, we attacked each hernia adolfo vidually. We went to the upper ventral hernia, make a small incision, and was able to place a Prolen e #1 in a buweqi-vi-xvdzz fashion multiple times. Because the area is weak, we proceeded to place a Ventralex mesh intraperitoneally, guided with laparoscopic technique. The Ventralex was secured in p lace with capture fixation device. The strap of this mesh was removed and then the fascial defect wa s closed with #1 Prolene in a fnjzeh-br-mjtlt fashion. We continued the fixation of the mesh laparos copically and then closed the skin with 3-0 chromic and leonie. For this second lower ventral herni a as bigger the defect, so we have to use another techniques to overlap this area by at least 3-5 cm. We have to use a Ventralight ST with Echo Positioning System. We exposed the fascia after making a small incision in that area, cleaned the fascia edges, put a ipbjal-kw-tgvzs fashion #1 Prolene mult iple times. This did allow me to putting a Ventralex ST mesh about 11 cm in size and then inflate th e balloon and this help us to fixate this mesh anteriorly. We made sure there was no bowel in july n and make sure it was nice and flat, and once again we proceeded to fixate that using a capture fixa tion device. The balloon was deflated and removed through one of the trocar sites intact. Then, we continued the fixation. At that moment, I proceeded then to a look for the area of the lysis of adhe sions, looks intact, no bleeding. Previous mesh placement looks intact. This mesh placement looks i ntact. We proceeded to deflate the pneumoperitoneum, closed the fascia with a #1 Prolene. Closed al so the initial Chuck trocar site with #1 Vicryl. The area was covered with sterile dressings. The patient tolerated the procedure well. The patient was sent to recovery in stable condition. Sponge count and instrument counts were correct. Disposition: Home. She preferred to go home. We gave her the option of 23 hours observation, but w hen she woke up, she is tolerating pain well. She preferred to go home, so we are going to send her home on Vicodin q.4 hours p.r.n. pain, Bactrim DS p.o. b.i.d., Zofran 4 q.6 hours p.r.n. nausea. Kin p the area dry for 48 hours, then may shower. Abdominal binder while she is out of bed. No heavy li fting. RAJI/MARYANN Voice ID: [id number] Report ID: [id number]
== END 2019-10-21 14:20 | disposition home or self-care (01) ==
LOC: OR 07:35
PROVIDERS: ATTEND Surgery
PROC: 0WUF0JZ Supplement Abdominal Wall with Synthetic Substitute, Open Approach (ICD-10-PCS; principal; 2019-10-21 08:30)
PROC: 0WUF0JZ Supplement Abdominal Wall with Synthetic Substitute, Open Approach (ICD-10-PCS; 2019-10-21 08:30)
DX: K43.0 Incisional hernia with obstruction, without gangrene (principal)
CPT/HCPCS: 93005; 85025; 80048; 36415; 71046; 49566 ×2; 49568 ×2; U0002; J2704; J2550; J0330; J2250; J3010 ×2; J1100; J2175; J1170 ×2; J2710; J0690; J7120; J2405; C1781